=== PATIENT | male | born 1995 | race African-American/Black ===

== ENCOUNTER 2023-04-23 03:19 | Emergency (ER) | payer SELFPAY ==
[~2023-04-23] VITALS: Ht 167.6 cm; Wt 79.0 kg
[2023-04-23 03:38] VITALS: TEMP 97.6
[2023-04-23] MEDS: ZIPRASIDONE MESYLATE 20 MG/VIAL IM ONE (03:52)
[2023-04-23] MEDS: DiphenhydrAMINE HCL 50 MG/ML VIAL IM ONE (03:53)
[2023-04-23] MEDS: LORazepam 2 MG/ML VIAL IM ONE (03:53)
[2023-04-23 04:28] LABS: BASOPHILS % (AUTO) 0.4 % (0.0-2.0); EOSINOPHILS % (AUTO) 0.2 % (1.0-6.0); HEMATOCRIT 43.6 % (41-53); HEMOGLOBIN 14.6 g/dL (13.5-17.5); LYMPHOCYTES # (AUTO) 1.2 K/uL (1.0-4.8); LYMPHOCYTES % (AUTO) 15.8 % (22.0-44.0); MEAN CORPUSCULAR HEMOGLOBIN 31.5 pg (26.0-34.0); MEAN CORPUSCULAR HGB CONC 33.4 G/dL (31.0-37.0); MEAN CORPUSCULAR VOLUME 94 fL (80-100); MONOCYTES # (AUTO) 0.4 K/uL (0.1-1.0); NEUTROPHILS % (AUTO) 78.6 % (40.0-70.0); PLATELET COUNT (AUTO) 325 K/uL (150-450); RED BLOOD CELL COUNT(AUTO) 4.63 MIL/uL (4.50-5.90); RED CELL DISTRIBUTION WIDTH 13.2 % (11.5-14.5); WHITE BLOOD COUNT (AUTO) 7.6 K/uL (4.5-11.0)
[2023-04-23 04:57] LABS: ANION GAP 14 mmol/L (8-16); CALCIUM, TOTAL 9.5 mg/dL (8.8-10.5); CARBON DIOXIDE 26 mmol/L (22-29); CHLORIDE 105 mmol/L (98-107); CREATININE 1.19 mg/dL (0.60-1.30); GLOMERULAR FILTR. RATE CALC > 60 mL/min (>60); GLUCOSE,RANDOM 81 mg/dL (70-110); POTASSIUM 3.1 mmol/L (3.5-5.1); SODIUM SERUM 145 mmol/L (136-145); UREA NITROGEN, BLOOD 11 mg/dL (7-18)
[2023-04-23 05:03] LABS: ALANINE AMINOTRANSFERASE 28 U/L (12-78); ALKALINE PHOSPHATASE 78 U/L (46-116); ASPARTATE AMINOTRANSFERASE 37 U/L (15-37); BILIRUBIN,TOTAL 0.2 mg/dL (0.1-1.0); TOTAL PROTEIN, SERUM 7.3 g/dL (6.4-8.2)
[2023-04-23 05:04] LABS: ALCOHOL, BLOOD (SERUM) 284 mg/dL (0-10)
[2023-04-23 13:18] VITALS: BP 124/67; PULSE 92; RESP 20
== END 2023-04-23 13:50 | disposition home or self-care (01) ==
LOC: EDBD 03:21 → EMS 03:21
DX: F10.129 Alcohol abuse with intoxication, unspecified (principal)
CPT/HCPCS: 99291; 80053; 85025; 36415; 96372; G0480; J1200; J2060; J3486